=== PATIENT | female | born 1995 ===

== ENCOUNTER 2018-03-03 19:50 | Emergency (ER) | payer SELFPAY ==
--- NOTE | 2018-03-03 20:15 | ED PDOC ---
Arrival/HPI - General Time Seen by Provider: 03/03/18 20:03 Historian: Patient, Other (Boyfriend) - History of Present Illness Time/Duration: Other (3 weeks) Symptom Onset: Sudden Symptom Course: Unchanged Quality: Aching Severity Level: Mild Associated Symptoms (Text): 03/03/18 20:13 Patient reports that she tripped down several steps 3 weeks ago injuring her left lateral foot. She has continued pain. She is able to weight-bear. No swelling. No other injury or trauma. She states that she thought the pain would go away, but when it didn't she decided to come to the emergency room. Past Medical History - Infectious Disease Hx of Infectious Diseases: None - Psychiatric Hx Depression: No Hx Emotional Abuse: No Hx Physical Abuse: No - Surgical History Hx Tonsillectomy: Yes - Suicidal Assessment Feels Threatened In Home Enviroment: No Family/Social History - Physician Review Nursing Documentation Reviewed: Yes Family/Social History: Unknown Family HX Smoking Status: Never Smoked Hx Alcohol Use: No Hx Substance Use: No Allergies/Home Meds Allergies/Adverse Reactions: Allergies amoxicillin Allergy (Verified 03/03/18 20:13) RASH Review of Systems - Physician Review All systems were reviewed & negative as marked: Yes Physical Exam Vital Signs Temp Pulse Resp BP Pulse Ox 03/03/18 20:07 98.3 F 89 18 120/72 100 Temperature: Afebrile Blood Pressure: Normal Pulse: Regular Respiratory Rate: Normal Appearance: Positive for: Well-Appearing, Non-Toxic, Comfortable Pain Distress: None Mental Status: Positive for: Alert and Oriented X 3 - Systems Exam Lower Extremity: Present: Normal Inspection, NORMAL PULSES, Normal ROM, Tenderness (Left lateral foot tenderness with no swelling and no skin changes.), Neurovascularly Intact. No: Edema, CALF TENDERNESS, Cyanosis, Michael's Sign, Swelling, Erythema, Deformity Skin: Present: Warm, Dry, Normal Color. No: Rashes Medical Decision Making ED Course and Treatment: 03/03/18 20:50 X-ray foot 3 view shows no fracture or dislocation - RAD Interpretation Radiology Orders: X-ray foot shows no fracture or dislocation. Home Health Nurse Licensed Practical: ED Physician Disposition/Present on Arrival - Present on Arrival Any Indicators Present on Arrival: No History of DVT/PE: No History of Uncontrolled Diabetes: No Urinary Catheter: No History of Decub. Ulcer: No History Surgical Site Infection Following: None - Disposition Have Diagnosis and Disposition been Completed?: Yes Diagnosis: Foot sprain Disposition: HOME/ ROUTINE Disposition Time: 21:00 Patient Plan: Discharge Condition: GOOD Additional Instructions: Rest moist heat and elevation. Tylenol or Advil as directed on bottle as needed. Follow-up with PMD. Follow up in ER as needed. Referrals: PCP,NO [Primary Care Provider] - Follow up with primary Forms: WORK NOTE
[2018-03-03 20:17] VITALS: BP 120/72; PULSE 89; RESP 18; TEMP 98.3; BMI 29.2
[2018-03-03 21:53] VITALS: O2SAT 99
--- NOTE | 2018-03-04 08:48 | RAD ---
Date of service: 03/03/2018 PROCEDURE: Left Foot Radiographs. HISTORY: trauma COMPARISON: None. FINDINGS: BONES: Normal. No fracture. JOINTS: Normal. SOFT TISSUES: Normal. OTHER FINDINGS: None. IMPRESSION: Normal left foot radiographs.
== END 2018-03-03 21:15 | disposition home or self-care (01) ==
LOC: ED 19:50
DX: S93.602A Unspecified sprain of left foot, initial encounter (principal); W10.9XXA Fall (on) (from) unspecified stairs and steps, initial encounter; Y92.9 Unspecified place or not applicable

== ENCOUNTER 2018-06-18 22:35 | Emergency (ER) | payer SELFPAY ==
[2018-06-18 23:15] VITALS: BMI 29.2
[2018-06-19] MEDS ORDERED: Oxycodone/Acetaminophen 5/325 mg Tab PO STA (00:10)
--- NOTE | 2018-06-19 00:13 | ED PDOC ---
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 Denies any fever, headache, URI, facial swelling, neck pain, throat pain. States that she is scheduled to see the dentist tomorrow at 10am. Past Medical History - Infectious Disease Hx of Infectious Diseases: None - Genitourinary/Gynecological Hx Genitourinary Disorders: Yes Other/Comment: ovarian cyst - Psychiatric Hx Depression: No Hx Emotional Abuse: No Hx Physical Abuse: No Hx Substance Use: No - Surgical History Hx Tonsillectomy: Yes - Anesthesia Hx Anesthesia: Yes - Suicidal Assessment Feels Threatened In Home Enviroment: No Family/Social History Family/Social History: No Known Family HX Smoking Status: Never Smoked Hx Alcohol Use: No Hx Substance Use: No Allergies/Home Meds Allergies/Adverse Reactions: Allergies amoxicillin Allergy (Verified 06/18/18 23:15) ANAPHYLAXIS Home Medications: Home Meds Medication Instructions Recorded Confirmed No Known Home Med 06/18/18 06/18/18 Review of Systems - Review of Systems Constitutional: absent: Fatigue, Fevers ENT: Other (+dental pain) Skin: absent: Rash, Pruritis Neurological: absent: Headache, Dizziness Physical Exam Temperature: Afebrile Blood Pressure: Normal Pulse: Regular Respiratory Rate: Normal Appearance: Positive for: Well-Appearing, Non-Toxic, Comfortable Pain Distress: Moderate Mental Status: Positive for: Alert and Oriented X 3 - Systems Exam Head: Present: Atraumatic, Normocephalic. No: Swelling (no facial swelling) Pupils: Present: PERRL Extroacular Muscles: Present: EOMI Conjunctiva: Present: Normal Mouth: Present: Moist Mucous Membranes, Other (+fractured tooth #20 that is tender to percussion, no gingival swelling) Pharnyx: Present: Normal. No: ERYTHEMA, EXUDATE Neck: Present: Normal Range of Motion, Trachea Midline. No: Lymphadenopathy Medical Decision Making ED Course and Treatment: 06/19/18 00:13 Patient given percocet PO. Advised to follow up with dentist as scheduled tomorrow. Return to the emergency room at any time for any new or worsening symptoms. Patient states she fully agrees with and understands discharge instructions. States that she agrees with the plan and disposition. Verbalized and repeated discharge instructions and plan. I have given the patient opportunity to ask any additional questions. - PA / FLY SETTER / Resident Statement MD/DO has reviewed & agrees with the documentation as recorded. Disposition/Present on Arrival - Present on Arrival Any Indicators Present on Arrival: No History of DVT/PE: No History of Uncontrolled Diabetes: No Urinary Catheter: No History of Decub. Ulcer: No History Surgical Site Infection Following: None - Disposition Have Diagnosis and Disposition been Completed?: Yes Diagnosis: Toothache Disposition: HOME/ ROUTINE Disposition Time: 00:15 Patient Plan: Discharge Condition: STABLE Discharge Instructions (ExitCare): Dental Pain Additional Instructions: Thank you for letting us take care of you today. You were treated for toothache. The emergency medical care you received today was directed at your acute symptoms. Return to the Emergency Department if your symptoms worsen, do not improve, or if you have any other problems. Please see your dentist tomorrow for re-evaluation and follow up. Bring any paperwork you were given at discharge with you along with any medications you are taking to your follow up visit. Our treatment cannot replace ongoing medical care by a primary care provider (PCP) outside of the emergency department. Thank you for allowing the [facility] team to be part of your care today. Forms: [employer] (Italian), WORK NOTE
[2018-06-19 00:22] VITALS: BP 128/77; PULSE 84; RESP 18; TEMP 98.4
[2018-06-19 02:26] VITALS: O2SAT 97
== END 2018-06-19 00:29 | disposition home or self-care (01) ==
LOC: ED 22:35
DX: K08.89 Other specified disorders of teeth and supporting structures (principal)